=== PATIENT | female | born 1955 | race Caucasian/White ===

== ENCOUNTER 2019-03-23 20:34 | Observation (INO) | payer MEDICARE, OTHER ==
[~2019-03-23] VITALS: Ht 162.6 cm; Wt 84.8 kg
[2019-03-23 21:06] LABS: BASOPHILS ABSOLUTE AUTO 0.04 K/mm3 (0.00-0.23); BASOPHILS PERCENT AUTO 0 % (0-2); EOSINOPHILS ABSOLUTE AUTO 0.15 K/mm3 (0.00-0.68); EOSINOPHILS PERCENT AUTO 2 % (0-6); Hematocrit 39.6 % (33.0-51.0); Hemoglobin 13.6 g/dL (11.5-16.0); IMMATURE GRAN ABSOLUTE AUTO 0.02 K/mm3 (0.00-0.10); IMMATURE GRAN PERCENT AUTO 0 % (0-1); LYMPHOCYTES ABSOLUTE AUTO 2.28 K/mm3 (0.84-5.20); LYMPHOCYTES PERCENT AUTO 25 % (21-46); MONOCYTES ABSOLUTE AUTO 0.97 K/mm3 (0.16-1.47); MONOCYTES PERCENT AUTO 11 % (4-13); Mean Corpuscular HGB 29.6 pg (26.0-34.0); Mean Corpuscular HGB Conc 34.3 g/dL (31.5-36.5); Mean Corpuscular Volume 86 fL (80-100); Mean Platelet Volume 9.3 fL (9.1-12.4); NEUTROPHILS ABSOLUTE AUTO 5.55 K/mm3 (1.96-9.15); NEUTROPHILS PERCENT AUTO 62 % (41-73); Platelet Count 310 K/mm3 (150-400); RDW Coefficient Variation 12.6 % (11.7-14.2); RDW Standard Deviation 39.8 fL (35.1-46.3); Red Blood Cell Count 4.59 M/mm3 (3.80-5.20); White Blood Cell Count 9.01 K/mm3 (4.00-11.30)
[2019-03-23 21:30] LABS: Alanine Aminotransfer (ALT/SGP 31 U/L (12-78); Albumin, Blood 4.1 g/dL (3.4-5.0); Albumin/Globulin Ratio 1.1 (0.8-1.8); Alk Phos 105 U/L (50-136); Anion Gap 9 mmol/L (6-16); Aspartate Aminotrans (AST/SGOT 31 U/L (12-37); Bilirubin, Total 0.8 mg/dL (0.1-1.0); Blood Urea Nitrogen 26 mg/dL (8-24); Bun/Creatinine Ratio 29.5 (12.0-20.0); CO2, Blood 41 mmol/L (21-32); Calcium, Blood 7.9 mg/dL (8.5-10.1); Chloride, Blood 85 mmol/L (98-108); Creatinine, Blood 0.88 mg/dL (0.40-1.00); Globulin, Blood 3.7 g/dL (2.2-4.0); Glomerular Filtration Rate >60 (60-); Glucose, Blood 123 mg/dL (70-99); Potassium, Blood 2.1 mmol/L (3.5-5.5); Sodium, Blood 135 mmol/L (136-145); Total Protein, Blood 7.8 g/dL (6.4-8.2)
--- NOTE | 2019-03-23 23:19 | NUR ---
CALLED FOR REPORT TO DENEEN CRAWFORD. AWAITING PT ARRIVAL TO [facility] RM [id number].
[2019-03-23] MEDS ORDERED: POTA10T PO (23:37)
[2019-03-23] MEDS ORDERED: METO5 PO (23:38)
[2019-03-23] MEDS ORDERED: OXYC10TA19 PO (23:38)
[2019-03-23] MEDS ORDERED: ATORVASTATIN CA40 MG PO (23:38)
[2019-03-23] MEDS ORDERED: Synthroid137 MCG PO (23:38)
[2019-03-23] MEDS ORDERED: OMEP20ER PO (23:38)
[2019-03-23] MEDS ORDERED: ARIPIPRAZOLE10 M1 PO (23:39)
[2019-03-23] MEDS ORDERED: FURO20 PO (23:51)
[2019-03-24] MEDS ORDERED: LIOT5 PO ×2 (00:22→00:28)
[2019-03-24] MEDS ORDERED: Budeprion Xl300 MG PO (00:22)
[2019-03-24] MEDS ORDERED: ARIP10 PO (00:23)
[2019-03-24] MEDS ORDERED: TOPI100 PO (00:24)
[2019-03-24] MEDS ORDERED: CYCL10 PO (00:24)
[2019-03-24] MEDS ORDERED: QUET100 PO (00:25)
[2019-03-24] MEDS ORDERED: Super Calcium600 MG PO (00:26)
[2019-03-24] MEDS ORDERED: EQ FIBER SUPPLEM2 GM PO (00:26)
[2019-03-24] MEDS ORDERED: THERA1 EACH PO (00:26)
[2019-03-24] MEDS ORDERED: FERSU300 PO (00:27)
[2019-03-24] MEDS ORDERED: DHEA PO (00:28)
[2019-03-24 04:42] LABS: Hematocrit 37.6 % (33.0-51.0); Hemoglobin 12.5 g/dL (11.5-16.0); Mean Corpuscular HGB 29.2 pg (26.0-34.0); Mean Corpuscular HGB Conc 33.2 g/dL (31.5-36.5); Mean Corpuscular Volume 88 fL (80-100); Mean Platelet Volume 9.2 fL (9.1-12.4); Platelet Count 277 K/mm3 (150-400); RDW Standard Deviation 41.6 fL (35.1-46.3); Red Blood Cell Count 4.28 M/mm3 (3.80-5.20); White Blood Cell Count 8.03 K/mm3 (4.00-11.30)
[2019-03-24 05:03] LABS: Magnesium, Blood 2.7 mg/dL (1.6-2.4)
[2019-03-24 05:08] LABS: Alanine Aminotransfer (ALT/SGP 28 U/L (12-78); Albumin, Blood 3.4 g/dL (3.4-5.0); Albumin/Globulin Ratio 1.1 (0.8-1.8); Alk Phos 88 U/L (50-136); Anion Gap 5 mmol/L (6-16); Aspartate Aminotrans (AST/SGOT 24 U/L (12-37); Bilirubin, Total 0.5 mg/dL (0.1-1.0); Blood Urea Nitrogen 24 mg/dL (8-24); Bun/Creatinine Ratio 27.9 (12.0-20.0); CO2, Blood 43 mmol/L (21-32); Calcium, Blood 7.5 mg/dL (8.5-10.1); Chloride, Blood 89 mmol/L (98-108); Creatinine, Blood 0.86 mg/dL (0.40-1.00); Globulin, Blood 3.1 g/dL (2.2-4.0); Glomerular Filtration Rate >60 (60-); Glucose, Blood 122 mg/dL (70-99); Sodium, Blood 137 mmol/L (136-145); Total Protein, Blood 6.5 g/dL (6.4-8.2)
--- NOTE | 2019-03-24 05:09 | NUR ---
CRITICALLY HIGH K+ RECIEVED CALL FROM SALES LEDGER ADMINISTRATOR FOR CRITICALLY ELEVATED K+ OF 2.0, SHOWING NO IMPROVEMENT SINCE LAST LAB DRAW. PT HAS ONLY GONE THROUGH 1.5 OUT OF 3 K-RIDER BAGS. PT CAN ONLY TOLERATED THE INFUSION AT 25 ML/HR D/T IV SITE PAIN. DISCUSSED WITH KILN [employer] UNLOADERTY LOPEZ. WILL CONT TO MONITOR AND INFUSE K RIDERS.
--- NOTE | 2019-03-24 05:10 | NUR ---
TELEMETRY IN PLACE, NO CARDIAC EVENTS. NSR.
--- NOTE | 2019-03-24 06:10 | NUR ---
SHIFT SUMMARY & TRANSFER NOTE: PT IS ADMITTED FROM ER EARLIER IN SHIFT. PT ARRIVES VIA BED AND TRANSFERS INDEPENDENTLY TO UNIT BED. ORIENTED TO UNIT, SAFETY MEASURES, AND USE OF CALL LT. PT IS A&O X 4. K+ IS 2.1 ARRIVAL, 3 K-RIDER BAGS ORDERED STILL INFUSING AT THIS TIME. PT CAN ONLY TOLERATE INFUSION RATE OF 25 ML/HR DILUTED IN NS AT 100 ML/HR. PT IS STARTING LAST BAG AT THIS TIME. K+ THIS AM IS 2.0. EKG IS NSR. TELEMETRY IN PLACE, NO CARDIAC EVENTS. DENIES ANY CHEST PAIN OR DISCOMFORT. 1+ EDEMA TO BLE. NO OTHER CHANGES TO REPORT. WILL CONT TO MONITOR AND PROVIDE CARE UNTIL PRESUMED BY ONCOMING RN.
[2019-03-24 06:42] LABS: Free Thyroxine 1.27 ng/dL (0.70-1.60)
[2019-03-24 06:44] LABS: Thyroid Stimulating Hormone 0.033 uIU/mL (0.360-4.800)
[2019-03-24] MEDS ORDERED: Norco 10-325 T1 EACH PO (07:54)
--- NOTE | 2019-03-24 16:21 | NUR ---
SHIFT SUMMARY PT SLEEPING DURING SHIFT REPORT. WOKE EASILY. IV KCL INFUSING PER EMAR. PT ADMITTED FOR HYPOKALEMIA. PO GIVEN PER EMAR WELL. DR CAO IN TO SEE PT THIS AM. NEW ORDERS PLACED. K+ LEVEL CHECK'D, SHOWING SLIGHT IMPROVEMENT. ADDITIONAL IV AND PO K+ GIVEN PER EMAR. IV K+ CONTINUES TO INFUSE SLOWLY, D/T PT BEING UNABLE TO TOLERATE RATE ON BAG. K+ LEVEL TO BE JAYME'D AGAIN WHEN CURRENT BAG COMPLETE. PT REPORTED THAT SHE TAKES LASIX AT HOME WELL PO K+, BUT DOES NOT UNDERSTAND WHY K+ IS SO LOW. PT REPORTED PAIN TO NECK AND REQUESTED HOME MEDICATION, NORCO. DR CAO NOTIFIED; NEW ORDERS PLACED. PT HAS BEEN SBA TO BTHRM NEEDED. SR ON TELE PER MX TECH. HX OF COPD, HTN, HYPOTHYROID AND DEPRESSION. CALL LT IN REACH. ABLE TO MAKE NEEDS KNOWN.
--- NOTE | 2019-03-25 06:30 | NUR ---
SHIFT SUMMARY K+ 3.1 WITH 1900 LABS/COMPLETION OF K-RIDERS. NO AM LABS ORDERED. PT IS A&O X 4, INDEPENDENT IN . TREATED SEVERAL TIMES FOR NECK PAIN R/T BULGING DISC. TELE IN PLACE NSR, NO CARDIAC EVENTS. PT DENIES ANY CHEST PAIN OR PRESSURE. NO OTHER ACUTE CHANGES, WILL CONT TO MONITOR AND PROVIDE CARE UNTIL PRESUMED BY ONCOMING RN.
[2019-03-25] MEDS ORDERED: K-Dur20 MEQ PO (10:32)
== END 2019-03-25 12:03 | disposition home or self-care (01) ==
LOC: ER 20:34 → MEDS 20:35 → ENPENDDIS 03-25 08:35 → MEDS 03-25 12:03
PROVIDERS: Physician Assistant; ADMIT Internal Medicine
DX: E87.6 Hypokalemia (principal); E86.0 Dehydration; I10 Essential (primary) hypertension; E78.5 Hyperlipidemia, unspecified; E03.9 Hypothyroidism, unspecified; K21.9 Gastro-esophageal reflux disease without esophagitis; Z79.899 Other long term (current) drug therapy
CPT/HCPCS: 36415; 80053; 83735; 84132; 84439; 84443; 85025; 85027; 93005; 93010; 96365; 96366; 96376; 99284-25; G0378; J3480; J7030; J7040

== ENCOUNTER 2019-04-18 12:22 | Emergency (ER) | payer MEDICARE, OTHER ==
[~2019-04-18] VITALS: Ht 162.6 cm; Wt 83.5 kg
[~2019-04-18 12:22] MED LIST: ARIP10 PO; ARIPIPRAZOLE10 M1 PO; ATORVASTATIN CA40 MG PO; Budeprion Xl300 MG PO; CYCL10 PO; DHEA PO; EQ FIBER SUPPLEM2 GM PO; FERSU300 PO; FURO20 PO; K-Dur20 MEQ PO; LIOT5 PO; METO5 PO; Norco 10-325 T1 EACH PO; OMEP20ER PO; OXYC10TA19 PO; POTA10T PO; QUET100 PO; Super Calcium600 MG PO; Synthroid137 MCG PO; THERA1 EACH PO; TOPI100 PO
[2019-04-18 13:05] LABS: BASOPHILS ABSOLUTE AUTO 0.03 K/mm3 (0.00-0.23); BASOPHILS PERCENT AUTO 1 % (0-2); EOSINOPHILS ABSOLUTE AUTO 0.25 K/mm3 (0.00-0.68); EOSINOPHILS PERCENT AUTO 5 % (0-6); Hematocrit 35.2 % (33.0-51.0); Hemoglobin 11.7 g/dL (11.5-16.0); IMMATURE GRAN ABSOLUTE AUTO 0.01 K/mm3 (0.00-0.10); IMMATURE GRAN PERCENT AUTO 0 % (0-1); LYMPHOCYTES ABSOLUTE AUTO 1.34 K/mm3 (0.84-5.20); LYMPHOCYTES PERCENT AUTO 27 % (21-46); MONOCYTES ABSOLUTE AUTO 0.42 K/mm3 (0.16-1.47); MONOCYTES PERCENT AUTO 9 % (4-13); Mean Corpuscular HGB Conc 33.2 g/dL (31.5-36.5); Mean Corpuscular Volume 90 fL (80-100); Mean Platelet Volume 9.1 fL (9.1-12.4); NEUTROPHILS ABSOLUTE AUTO 2.85 K/mm3 (1.96-9.15); NEUTROPHILS PERCENT AUTO 58 % (41-73); Platelet Count 247 K/mm3 (150-400); RDW Coefficient Variation 12.7 % (11.7-14.2)
[2019-04-18 13:24] LABS: Alanine Aminotransfer (ALT/SGP 27 U/L (12-78); Albumin, Blood 3.7 g/dL (3.4-5.0); Albumin/Globulin Ratio 1.1 (0.8-1.8); Alk Phos 83 U/L (50-136); Anion Gap 4 mmol/L (6-16); Aspartate Aminotrans (AST/SGOT 15 U/L (12-37); Bilirubin, Total 0.3 mg/dL (0.1-1.0); Blood Urea Nitrogen 13 mg/dL (8-24); Bun/Creatinine Ratio 16.5 (12.0-20.0); CO2, Blood 33 mmol/L (21-32); Calcium, Blood 8.3 mg/dL (8.5-10.1); Chloride, Blood 103 mmol/L (98-108); Creatinine, Blood 0.79 mg/dL (0.40-1.00); Globulin, Blood 3.3 g/dL (2.2-4.0); Glomerular Filtration Rate >60 (60-); Glucose, Blood 110 mg/dL (70-99); Magnesium, Blood 2.1 mg/dL (1.6-2.4); Potassium, Blood 2.6 mmol/L (3.5-5.5); Sodium, Blood 140 mmol/L (136-145)
[2019-04-18] MEDS ORDERED: OXYC10TA19 PO (16:55)
[2019-04-18 19:27] LABS: Anion Gap 3 mmol/L (6-16); Blood Urea Nitrogen 11 mg/dL (8-24); CO2, Blood 32 mmol/L (21-32); Calcium, Blood 7.9 mg/dL (8.5-10.1); Chloride, Blood 108 mmol/L (98-108); Creatinine, Blood 0.73 mg/dL (0.40-1.00); Glomerular Filtration Rate >60 (60-); Glucose, Blood 106 mg/dL (70-99); Potassium, Blood 3.6 mmol/L (3.5-5.5); Sodium, Blood 143 mmol/L (136-145)
== END 2019-04-18 20:28 | disposition home or self-care (01) ==
LOC: ER 12:22
PROVIDERS: Emergency Medicine; Physician Assistant
DX: E87.6 Hypokalemia (principal); Z79.899 Other long term (current) drug therapy; Z79.4 Long term (current) use of insulin; E03.9 Hypothyroidism, unspecified
CPT/HCPCS: 36415; 80048; 80053; 83735; 85025; 93005; 93010; 96365; 96366; 99283-25; J3480

== ENCOUNTER 2022-03-13 13:34 | Emergency (ER) | payer MEDICARE ==
[~2022-03-13] VITALS: Ht 162.6 cm; Wt 85.7 kg
[2022-03-13] MEDS ORDERED: Cyclobenzaprine5 MG PO (14:55)
[2022-03-13] MEDS ORDERED: Prednisone50 MG PO (14:55)
[2022-03-13] MEDS ORDERED: HYDROCODONE-AC1 EA10 PO (14:55)
== END 2022-03-13 15:09 | disposition home or self-care (01) ==
LOC: ER 13:34
DX: M54.42 Lumbago with sciatica, left side (principal); Z88.8 Allergy status to other drugs, medicaments and biological substances; Z79.899 Other long term (current) drug therapy
CPT/HCPCS: 99283; A9270; J7512

== ENCOUNTER 2022-04-21 01:20 | Emergency (ER) | payer MEDICARE ==
[~2022-04-21] VITALS: Ht 162.6 cm; Wt 84.8 kg
[~2022-04-21 01:20] MED LIST changes: +Cyclobenzaprine5 MG PO; +HYDROCODONE-AC1 EA10 PO; +Prednisone50 MG PO
[2022-04-21 02:44] LABS: BASOPHILS ABSOLUTE AUTO 0.04 K/mm3 (0.00-0.23); BASOPHILS PERCENT AUTO 1 % (0-2); EOSINOPHILS ABSOLUTE AUTO 0.14 K/mm3 (0.00-0.68); EOSINOPHILS PERCENT AUTO 2 % (0-6); Hematocrit 34.1 % (33.0-51.0); Hemoglobin 11.3 g/dL (11.5-16.0); IMMATURE GRAN ABSOLUTE AUTO 0.03 K/mm3 (0.00-0.10); IMMATURE GRAN PERCENT AUTO 0 % (0-1); LYMPHOCYTES ABSOLUTE AUTO 1.65 K/mm3 (0.84-5.20); LYMPHOCYTES PERCENT AUTO 23 % (21-46); MONOCYTES ABSOLUTE AUTO 0.69 K/mm3 (0.16-1.47); MONOCYTES PERCENT AUTO 10 % (4-13); Mean Corpuscular HGB 30.2 pg (26.0-34.0); Mean Corpuscular HGB Conc 33.1 g/dL (31.5-36.5); Mean Corpuscular Volume 91 fL (80-100); Mean Platelet Volume 8.9 fL (9.1-12.4); NEUTROPHILS ABSOLUTE AUTO 4.65 K/mm3 (1.96-9.15); NEUTROPHILS PERCENT AUTO 65 % (41-73); Platelet Count 238 K/mm3 (150-400); RDW Standard Deviation 42.5 fL (35.1-46.3); Red Blood Cell Count 3.74 M/mm3 (3.80-5.20)
[2022-04-21 03:12] LABS: Albumin, Blood 3.4 g/dL (3.4-5.0); Albumin/Globulin Ratio 1.2 (0.8-1.8); Bilirubin, Total 0.3 mg/dL (0.1-1.0); Bun/Creatinine Ratio 22.5 (12.0-20.0); Calcium, Blood 8.2 mg/dL (8.5-10.1); Creatinine, Blood 0.71 mg/dL (0.40-1.00); Globulin, Blood 2.9 g/dL (2.2-4.0); Potassium, Blood 3.2 mmol/L (3.5-5.5); Thyroid Stimulating Hormone 1.96 uIU/mL (0.360-4.800); Total Protein, Blood 6.3 g/dL (6.4-8.2)
== END 2022-04-21 05:20 | disposition home or self-care (01) ==
LOC: ER 01:20
PROVIDERS: Emergency Medicine
DX: S01.112A Laceration without foreign body of left eyelid and periocular area, initial encounter (principal); E87.6 Hypokalemia; E03.9 Hypothyroidism, unspecified; Z79.899 Other long term (current) drug therapy; Z88.8 Allergy status to other drugs, medicaments and biological substances; Z79.52 Long term (current) use of systemic steroids; W19.XXXA Unspecified fall, initial encounter
CPT/HCPCS: 12013; 36415; 80053; 84443; 85025; 93005; 93010; 99283-25; A9270

== ENCOUNTER 2022-08-21 14:15 | Emergency (ER) | payer MEDICARE ==
[~2022-08-21] VITALS: Ht 162.6 cm; Wt 79.4 kg
[2022-08-21] MEDS ORDERED: Prednisone20 MG PO (15:50)
[2022-08-21] MEDS ORDERED: CODEINE-GUAIFE120 M1 PO (15:50)
[2022-08-21] MEDS ORDERED: Tessalon200 MG PO (15:50)
[2022-08-21 17:16] LABS: Influenza A, PCR NEGATIVE (NEGATIVE); Influenza B, PCR NEGATIVE (NEGATIVE); Resp Syncytial Virus, PCR NEGATIVE (NEGATIVE); SARS-Cov-2 (COVID-19) PCR, MMC NEGATIVE (NEGATIVE)
== END 2022-08-21 16:07 | disposition home or self-care (01) ==
LOC: ER 14:15
PROVIDERS: Physician Assistant
DX: R05.9 Cough, unspecified (principal); E03.9 Hypothyroidism, unspecified; Z79.899 Other long term (current) drug therapy; Z20.822 Contact with and (suspected) exposure to COVID-19
CPT/HCPCS: 0241U; 71046; 99283-25

== ENCOUNTER → 2023-07-05 | Outpatient (CLI) | payer MEDICARE ==
[~2023-07-05] MED LIST changes: +CODEINE-GUAIFE120 M1 PO; +Prednisone20 MG PO; +Tessalon200 MG PO
== END | disposition home or self-care (01) ==
LOC: LAB SHORT 13:11 → PLD 13:11
DX: D48.5 Neoplasm of uncertain behavior of skin (principal)
CPT/HCPCS: 88305

== ENCOUNTER → 2024-03-22 | Outpatient (CLI) | payer MEDICARE ==
[2024-03-26 18:51] LABS: Adenovirus F 40/41 Not Detected (NOT DETECT); Astrovirus Not Detected (NOT DETECT); Campylobacter Sp Detected (NOT DETECT); Cryptosporidium Not Detected (NOT DETECT); Cyclospora Cayetanensis Not Detected (NOT DETECT); E. Coli O157 Not Detected (NOT DETECT); Entamoeba Histolytica Not Detected (NOT DETECT); Enteroaggregative E. coli-EAEC Not Detected (NOT DETECT); Enteropathogenic E. coli-EPEC Not Detected (NOT DETECT); Enterotoxigenic E. coli-ETEC Not Detected (NOT DETECT); Giardia Lamblia Not Detected (NOT DETECT); Norovirus GI/GII Not Detected (NOT DETECT); Plesiomonas Shigelloides Not Detected (NOT DETECT); Rotavirus A Not Detected (NOT DETECT); Salmonella Sp Not Detected (NOT DETECT); Sapovirus Not Detected (NOT DETECT); Shiga Toxin-prod E. coli-STEC Not Detected (NOT DETECT); Shigella/Enteroin E. coli-EIEC Not Detected (NOT DETECT); Vibrio Cholerae Not Detected (NOT DETECT); Vibrio Sp Not Detected (NOT DETECT); Yersinia Enterocolitica Not Detected (NOT DETECT)
[2024-03-30 16:40] LABS: OVA AND PARASITE,FECAL INTERP Negative (Negative)
== END | disposition home or self-care (01) ==
LOC: LAB SHORT 17:00
PROVIDERS: Family Medicine
DX: R19.7 Diarrhea, unspecified (principal)
CPT/HCPCS: 87177; 87209; 87507

== ENCOUNTER → 2024-03-23 | Outpatient (CLI) | payer MEDICARE ==
[2024-03-27 11:58] LABS: C DIFFICILE DNA Duplicate (Negative)
[2024-03-28 14:14] LABS: CALPROTECTIN,FECAL 142 ug/g (<=49)
== END | disposition home or self-care (01) ==
LOC: LAB SHORT 14:15
PROVIDERS: Family Medicine
DX: R19.7 Diarrhea, unspecified (principal)
CPT/HCPCS: 83993; 87338

== ENCOUNTER 2024-11-06 21:24 | Emergency (ER) | payer MEDICARE ==
[~2024-11-06] VITALS: Ht 162.6 cm; Wt 81.7 kg
[2024-11-06 21:41] VITALS: BP 129/100
[2024-11-06 21:46] LABS: BASOPHILS ABSOLUTE AUTO 0.08 K/mm3 (0.00-0.23); BASOPHILS PERCENT AUTO 1 % (0-2); EOSINOPHILS ABSOLUTE AUTO 0.27 K/mm3 (0.00-0.68); EOSINOPHILS PERCENT AUTO 4 % (0-6); Hematocrit 39.6 % (33.0-51.0); Hemoglobin 12.8 g/dL (11.5-16.0); IMMATURE GRAN ABSOLUTE AUTO 0.12 K/mm3 (0.00-0.10); IMMATURE GRAN PERCENT AUTO 2 % (0-1); LYMPHOCYTES ABSOLUTE AUTO 2.51 K/mm3 (0.84-5.20); LYMPHOCYTES PERCENT AUTO 33 % (21-46); MONOCYTES ABSOLUTE AUTO 0.56 K/mm3 (0.16-1.47); MONOCYTES PERCENT AUTO 7 % (4-13); Mean Corpuscular HGB 30.8 pg (26.0-34.0); Mean Corpuscular HGB Conc 32.3 g/dL (31.5-36.5); Mean Corpuscular Volume 95 fL (80-100); Mean Platelet Volume 8.8 fL (9.1-12.4); NEUTROPHILS ABSOLUTE AUTO 4.06 K/mm3 (1.96-9.15); NEUTROPHILS PERCENT AUTO 53 % (41-73); Platelet Count 314 K/mm3 (150-400); RDW Coefficient Variation 13.2 % (11.7-14.2); RDW Standard Deviation 46.5 fL (35.1-46.3); Red Blood Cell Count 4.15 M/mm3 (3.80-5.20)
[2024-11-06 21:59] LABS: Albumin, Blood 3.8 g/dL (3.4-5.0); Albumin/Globulin Ratio 0.9 (0.8-1.8); Bilirubin, Total 0.3 mg/dL (0.1-1.0); Bun/Creatinine Ratio 18.1 (12.0-20.0); Calcium, Blood 8.5 mg/dL (8.5-10.1); Creatinine, Blood 0.99 mg/dL (0.40-1.00); Globulin, Blood 4.2 g/dL (2.2-4.0); Potassium, Blood 3.8 mmol/L (3.5-5.5)
[2024-11-07] MEDS ORDERED: Ipratropium/Albuterol SulF 2.5-0.5MG/3 ML Amp INH ONE (00:05)
[2024-11-07] MEDS ORDERED: Dexamethasone Sod Phos 10 MG/ML 1ML VIAL IV ONE (00:10)
[2024-11-07] MEDS ORDERED: Azithromycin 250 MG Tab PO ONE (00:10)
[2024-11-07] MEDS ORDERED: Amoxicillin/Clavulanate K 875 MG Tab PO ONE (00:10)
[2024-11-07] MEDS ORDERED: AMOCLA875 PO (00:13)
[2024-11-07] MEDS ORDERED: AZIT250 PO (00:13)
== END 2024-11-07 00:39 | disposition home or self-care (01) ==
LOC: ER 21:24
PROVIDERS: Physician Assistant
DX: J18.9 Pneumonia, unspecified organism (principal); Z59.89 Other problems related to housing and economic circumstances; Z88.9 Allergy status to unspecified drugs, medicaments and biological substances; Z79.890 Hormone replacement therapy; Z79.02 Long term (current) use of antithrombotics/antiplatelets; Z79.899 Other long term (current) drug therapy; Z79.891 Long term (current) use of opiate analgesic; Z79.4 Long term (current) use of insulin
CPT/HCPCS: 71046; 80053; 85025; 93005; 93010; 94640; 94664; 96374; 99285-25; A9270; J1100